=== PATIENT | female | born 1965 | race Caucasian/White ===

== ENCOUNTER 2018-11-24 07:34 | Inpatient (IN) ==
--- NOTE | 2018-11-24 08:32 | PROVIDER DOCUMENTATION ---
HPI-Musculoskeletal Pain/Inj - GENERAL Chief Complaint: Extremity Pain Stated Complaint: LEG SWOLLEN / RED Time Seen by Provider: 11/24/18 08:20 - HX OF PRESENT ILLNESS-MUSKULOSKELTAL Nature of Presenting Problem: patient with history of leukemia, DVT presented with pain behind left knee and red spots in posterior aspect of left thigh, no injury was reported , negative for fever or source on infection Quality of Pain: reports: sharp Severity in ED: moderate Onset/Duration: 3 days ago Timing: still present Modifying Factors: improves with: nothing Any recent injury?: No Similar Symptoms Previously?: No Recently seen or treated by another doctor?: No - FALL INJURY Location of Pain/Injury: reports: none Review of Systems - Adult - REVIEW OF SYSTEMS - ADULT Constitutional: reports: fever. denies: fatique, night sweats Eyes: reports: no symptoms reported Ears, Nose, Mouth & Throat: reports: no symptoms reported Cardiovascular: reports: no symptoms reported Respiratory: reports: no symptoms reported Gastrointestinal: reports: no symptoms reported Genitourinary: reports: no symptoms reported Musculoskeletal: reports: other (left lower extremity pain and redness) Neurological: reports: no symptoms reported Psychiatric: reports: no symptoms reported Endocrine: reports: no symptoms reported Hematologic/Lymphatic: reports: no symptoms reported Allergic/Immunologic: reports: no symptoms reported Past History - Adult - PAST MEDICAL HISTORY-ADULT Review of Records: reports: Nursing Assessment Review Major Childhood Illnesses: reports: denies history Cardiovascular: reports: denies history Respiratory: reports: denies history Gastrointestinal: reports: denies history Obstetrical/Gynecological: reports: denies history Genitourinary: reports: denies history Musculoskeletal: reports: denies history Neurological: reports: denies history Endocrine/Immune: reports: denies history Other Conditions: reports: denies history Physical Exam-Injury Related - Physical Exam-Injury Related Initial Vital Signs Reviewed: Yes General Appearance: appears well, alert, no apparent distress Eyes: PERRL/EOMI Head, Ears, Nose, Mouth & Throat: normocephalic/atraumatic, moist mucous membranes Neck: non-tender, supple Respiratory: chest non-tender, lungs clear Cardiovascular: normal peripheral pulses, regular rate, rhythm, no edema, no gallop, no JVD, no murmur Chest/Breast: deferred Abdominal Exam: normal bowel sounds, non tender, soft, no organomegaly, no pulsatile mass Rectal Exam: deferred Hemoccult Exam: deferred Lymphatic: no adenopathy, axilla node tender Extremity: erythema, tenderness, other (discreted erythema rash in posterior aspect of the left thigh, tenderness). 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 negative: disoriented x 3 - Glascow Coma Score Best Eye Response ([place]): (4) open spontaneously Best Verbal Response (Vance): (5) oriented Best Motor Response ([place]): (6) obeys commands Progress - PLAN OF CARE/RESULTS Progress/Plan/Lab Results: Vital Signs - 8 hr 11/24/18 07:45 11/24/18 09:34 Temperature 97.5 F L Pulse Rate 120 H 106 H Respiratory Rate 20 20 Blood Pressure 103/070 117/86 O2 Sat by Pulse Oximetry 96 96 Laboratory Results - last 24 hr 11/24/18 11/24/18 11/24/18 08:45 08:45 08:55 WBC 15.44 H RBC 3.74 L Hgb 12.5 Hct 37.0 MCV 98.9 MCH 33.4 H MCHC 33.8 RDW Std Deviation 14.3 Plt Count 192 MPV 10.7 H Immature Gran % (Auto) 0.2 Neut % (Auto) 75.3 H Lymph % (Auto) 13.6 L Cedar % (Auto) 8.9 Eos % (Auto) 1.7 Baso % (Auto) 0.3 Immature Gran # (Auto) 0.03 Neut # (Auto) 11.61 H Lymph # (Auto) 2.10 Cedar # (Auto) 1.38 H Eos # (Auto) 0.27 Baso # (Auto) 0.05 Sodium 142 Potassium 3.8 Chloride 99 Carbon Dioxide 27 Anion Gap 16 BUN 8 Creatinine 0.7 Estimated GFR/1.73 m2 > 60 BUN/Creatinine Ratio 11 Glucose 106 H Calculated Osmolality 282 Calcium 9.4 Total Bilirubin 0.70 AST 17 ALT 11 Alkaline Phosphatase 95 Total Protein 7.2 Albumin 4.1 Globulin 3.0 Albumin/Globulin Ratio 1.0 Plasma Lactate 1.3 Orders Category Date Time Status Admit - [facility] Routine AdmDCTranf 11/24/18 13:22 Active Activity - Bed Rest with BRP ORDERED Care 11/24/18 13:22 Completed Neurological Check Q4H Care 11/24/18 13:22 Active Saline Loc NOW Care 11/24/18 08:26 Completed Vital Signs Order Q 4-HR ASSESS Care 11/24/18 13:22 Active Z-Document. for Tele Applied ORDERED Care 11/24/18 13:22 Active Regular Diet Diet 11/24/18 13:23 Active CTA [CT ANGIOGRM PULMONARY ARTERIES] [CT] Stat Exams 11/24/18 09:42 Completed BLOOD CULTURE [BLDCUL] Stat Lab 11/24/18 08:55 Ordered CBC WITH DIFF [HEME] Stat Lab 11/24/18 08:45 Completed COMPREHENSIVE METABOLIC PANEL [CHEM] Stat Lab 11/24/18 08:45 Completed LACTATE, PLASMA [CHEM] Stat Lab 11/24/18 08:55 Completed Acetaminophen [Tylenol] Med 11/24/18 13:22 Active 650 mg PO Q6H PRN PRN Apixaban [Eliquis] Med 11/24/18 09:18 Discontinued 10 mg PO NOW ONE Budesonide/Formoterol Inhaler [Symbicort 160/4.5 Med 11/24/18 19:30 Active Microgm Inhaler] 2 puff INH RTBID Enoxaparin [Lovenox] Med 11/24/18 21:00 Active 50 mg SUBQ Q12H Montelukast [Singulair] Med 11/25/18 09:00 Active 10 mg PO DAILY Ondansetron [Zofran] Med 11/24/18 13:22 Active 4 mg IV Q4H PRN PRN Oxygen Device Routine Oth 11/24/18 13:22 Active Telemetry [OM.EQ] Routine Oth 11/24/18 13:22 Active EKG [EKG] Stat Ther 11/24/18 08:27 Ordered Venous U/S Left Leg Stat Ther 11/24/18 08:25 Completed Transfer/Admit Order [TRANSFER] Routine Transfer 11/24/18 12:16 Completed Result Diagrams: 11/24/18 08:45 11/24/18 08:45 - REASSESSMENT Reassessment #1 Status: unchanged (patient denied chest pain or shortness of breath) - CT/MRI 1 CT Study: Thorax Impression: See EMR Report (EXAM: CT ANGIOGRM PULMONARY ARTERIES HISTORY: tachycardia, possible for DVT, rule out PE TECHNIQUE: CT chest with intravenous contrast. Pulmonary two protocol with MIP images. COMPARISON: 06/21/2014 FINDINGS: There is a large pulmonary embolus in the left pulmonary artery extending into the lower lobe branches. A small amount of thrombus is present in the left upper lobe pulmonary artery. Prominent thrombus in the right upper lobe pulmonary artery with a small amount of thrombus in the right lower lobe pulmonary artery. No thoracic aortic aneurysm. No opacification of approximately one third of the distal descending thoracic aorta extending into the upper abdomen. This had normal opacification of the prior study. There is an 8 mm pleural-based nodule posteriorly in the left lower lobe. Mild emphysema. No consolidation. No bronchiectasis. Limited images through the upper abdomen reveal multiple stones within the gallbladder. IMPRESSION: 1.Bilateral pulmonary emboli 2.Possible lower thoracic aortic dissection which was not present on the prior study. There is no contrast within the dissected portion. 3.Left lower lobe pulmonary nodule 4.Emphysema 5.Cholelithiasis This report was discussed with Dr Perez in the [place] emergency room on 11/24/2018 at 10:45 AM and was readback. This exam was performed using automated exposure control, adjustment of mA or kV according to patient size, and/or use of iterative reconstruction technique. Electronically signed by Migel Padgett 11/24/2018 10:46 AM 11/24/18 1046 Interpreting Physician: Migel Padgett MD Dictated Date/Time: 11/24/18 1037 cc: Bea Perez MD; None,PCP) - ULTRASOUND (By Radiology) 1 US Study: Lower Ext Impression: See EMR Report (Patient: GERARDO YUEN Date: 11/24/18MR#: [id number] : 1965Acct#: [id number] Family Physician: None,PCP EXAM: Venous U/S Left Leg HISTORY: rule out DVT TECHNIQUE: Left lower extremity venous Doppler ultrasound COMPARISON: None. FINDINGS: There is thrombus in the common femoral vein, superficial femoral vein and popliteal veins. There is also superficial venous thrombosis. IMPRESSION: Extensive left lower extremity deep venous thrombosis. The referring physician was notified at the time of the exam. Electronically signed by Migel Padgett 11/24/2018 9:51 AM 11/24/18 0951 11/24/18 0953 Dictated by: Migel Padgett MD Dictated: 11/24/1849 Transcribed by: - 11/24/18948) - CONSULTS/PCP/HOSPITALIST Notification #1 *Consult/PCP/Hospitalist*: walker Time Discussed: 11:01 Consult Disposition: other (OK to admit and he will see as product marketing consultant) #2 Consult: [place] Consult Disposition: Admit Departure - Departure Date of Disposition Decision: 11/24/18 Time of Disposition Decision: 08:40 DIAGNOSIS: DVT (deep venous thrombosis), Pulmonary emboli Disposition: ADMITTED INPATIENT 09 Certified Medical Emergency: Emergent Condition: Good - Critical Care Note This patient required my direct & personal management of CC.: No Attestation - Physician/ RANDY Attestation Patient care was provided by Advanced Practice Provider:: No The physician spent face to face time with patient:: Yes Advanced Practice Provider documentation review:: Supervising physician onsite and consulted in the evaluation and care of this patient. The physician did have a face to face encounter with the patient.
[2018-11-24] MEDS ORDERED: ELIQUIS PO ONE (09:18)
--- NOTE | 2018-11-24 09:53 | Extremity Venous Study ---
EXAM: Venous U/S Left Leg HISTORY: rule out DVT TECHNIQUE: Left lower extremity venous Doppler ultrasound COMPARISON: None. FINDINGS: There is thrombus in the common femoral vein, superficial femoral vein and popliteal veins. There is also superficial venous thrombosis. IMPRESSION: Extensive left lower extremity deep venous thrombosis. The referring physician was notified at the time of the exam. Electronically signed by Migel Padgett 11/24/2018 9:51 AM
[2018-11-24 10:03] LABS: BASO# 0.05 X1000 (0.0-0.2); BASO% 0.3 % (0.0-0.8); EOS# 0.27 X1000 (0.0-0.7); EOS% 1.7 % (0.0-10.0); HEMOGLOBIN 12.5 g/dL (12.0-16.0); IMM GRAN# 0.03 X1000 (0.0-0.04); IMM GRAN% 0.2 % (0.0-0.5); LYMPH% 13.6 % (20.5-51.1); MCH 33.4 PG (27-31); MCHC 33.8 g/dL (33-37); MCV 98.9 FL (81-99); MONO# 1.38 X1000 (0.11-0.59); MONO% 8.9 % (1.7-9.3); MPV 10.7 FL (7.4-10.4); NEUT# 11.61 X1000 (1.4-6.5); NEUT% 75.3 % (42.2-75.2); PLT 192 X1000 (130-400); RBC 3.74 XMIL (4.2-5.4); RDW 14.3 % (11.5-14.5); WBC 15.44 X1000 (4.8-10.8)
[2018-11-24 10:14] LABS: AGAP 16; ALBUMIN 4.1 g/dL (3.5-5.0); ALKALINE PHOSPHATASE 95 U/L (32-104); BUN 8 mg/dL (8-22); CALCIUM 9.4 mg/dL (8.8-10.2); CHLORIDE 99 mmol/L (98-107); COSMO 282; CREATININE 0.7 mg/dL (0.5-0.9); ESTIMATED GFR > 60; GLUCOSE 106 mg/dL (70-104); GOT 17 U/L (10-30); GPT 11 U/L (10-36); POTASSIUM 3.8 mmol/L (3.5-5.1); SODIUM 142 mmol/L (136-145); TCO2 27 mmol/L (25-35); TOTAL PROTEIN 7.2 g/dL (6.3-8.3)
--- NOTE | 2018-11-24 10:48 | Diag Imaging Result Doc PS360 ---
EXAM: CT ANGIOGRM PULMONARY ARTERIES HISTORY: tachycardia, possible for DVT, rule out PE TECHNIQUE: CT chest with intravenous contrast. Pulmonary two protocol with MIP images. COMPARISON: 06/21/2014 FINDINGS: There is a large pulmonary embolus in the left pulmonary artery extending into the lower lobe branches. A small amount of thrombus is present in the left upper lobe pulmonary artery. Prominent thrombus in the right upper lobe pulmonary artery with a small amount of thrombus in the right lower lobe pulmonary artery. No thoracic aortic aneurysm. No opacification of approximately one third of the distal descending thoracic aorta extending into the upper abdomen. This had normal opacification of the prior study. There is an 8 mm pleural-based nodule posteriorly in the left lower lobe. Mild emphysema. No consolidation. No bronchiectasis. Limited images through the upper abdomen reveal multiple stones within the gallbladder. IMPRESSION: 1.Bilateral pulmonary emboli 2.Possible lower thoracic aortic dissection which was not present on the prior study. There is no contrast within the dissected portion. 3.Left lower lobe pulmonary nodule 4.Emphysema 5.Cholelithiasis This report was discussed with Dr Perez in the [place] emergency room on 11/24/2018 at 10:45 AM and was readback. This exam was performed using automated exposure control, adjustment of mA or kV according to patient size, and/or use of iterative reconstruction technique. Electronically signed by Migel Padgett 11/24/2018 10:46 AM
[2018-11-24] MEDS ORDERED: TYLENOL PO PRN (13:22)
--- NOTE | 2018-11-24 14:57 | HISTORY AND PHYSICAL ---
CHIEF COMPLAINT: Pain in her left knee with redness to the posterior aspect of the left thigh and also having shortness of breath that has worsened over the past 3 days. HISTORY OF PRESENTING ILLNESS: This is a 53-year-old female who presents to [facility] ER stating that she has been having pain behind her left knee with some red spots on the posterior aspect of her left thigh. Also, has had some shortness of breath with minimal exertion noted. States she has had a history of a DVT in her left leg about a year ago, was on anticoagulation and was taken off. We did a left leg venous Doppler ultrasound that showed an extensive left lower extremity DVT. Due to her complaints of shortness of breath, we did a CT angiogram of the pulmonary arteries that showed bilateral pulmonary emboli, a possible lower thoracic aortic dissection which was not present on the prior study but there was no contrast within the dissected portion, a left lower lobe pulmonary nodule, emphysema, and cholelithiasis. This was discussed with our on-call general surgeon, Dr. Cheema, who felt that this could be managed here at [place]. He will be consulted for further evaluation and treatment. She is being admitted to our intensive care unit. PAST MEDICAL HISTORY: Left lower extremity DVT and leukemia. PAST SURGICAL HISTORY: section and a stem cell transplant. FAMILY HISTORY: Reviewed and noncontributory. SOCIAL HISTORY: She is a pack a day smoker. Denies any alcohol or illicit drug use. She currently lives alone. ALLERGIES: Latex. HOME MEDICATIONS: We will continue her Symbicort 160/4.5 mcg inhaler 2 puffs b.i.d. and Singulair 10 mg p.o. daily. LABORATORY DATA: Showed a white blood cell count of 15.44, a hemoglobin of 12.5, a hematocrit of 37, platelets 192,000. Sodium 142, potassium 3.8, chloride 99, CO2 27, BUN of 8, creatinine 0.7 glucose 106, plasma lactate 1.3. A left lower extremity venous Doppler showed an extensive left lower extremity DVT. Pulmonary arteriogram showed bilateral pulmonary emboli, possible lower thoracic aortic dissection not present on the prior study. No contrast within the dissected portion. A left lower lobe pulmonary nodule, emphysema, and cholelithiasis. REVIEW OF SYSTEMS: She denied any fever, chills, blurred vision, dizziness, chest pain, coughing. She did have shortness of breath that was worse with exertion. Denied any abdominal pain, constipation, diarrhea, burning or hurting with urination. She also had pain to her left lower extremity, worse with movement. PHYSICAL EXAMINATION: VITAL SIGNS: On arrival, she had a temperature of 97.5 degrees, pulse 120, respirations 20, blood pressure 103/70, saturating 96% on room air. GENERAL: This is a 53-year-old female who is lying in the bed. Answers questions appropriately. HEENT: Normocephalic, atraumatic. Normal ENT inspection. Oropharynx and nares are clear. Eyes: Pupils are equal, round, and reactive to light and accommodation. Extraocular movements are intact. NECK: Normal inspection. Normal range of motion. LUNGS: Clear to auscultation bilaterally with equal lung expansion and chest wall movement. HEART: With regular rate and rhythm. No murmurs, rubs, or gallops. ABDOMEN: Soft, nontender, nondistended. Bowel sounds are present x4 quadrants. MUSCULOSKELETAL: She has 5/5 strength x4 extremities. Moves all extremities well. NEUROLOGICAL: The cranial nerves 2-12 appear grossly intact. ASSESSMENT: 1. Bilateral pulmonary emboli. 2. Left lower extremity deep venous thrombosis. 3. Leukocytosis, most likely reactive. 4. Tobacco abuse. PLAN: She was admitted to the intensive care unit at [place], placed on neurological checks q.4 hours for 24 hours, telemetry, O2 per protocol. We are going to place her on a regular diet, echocardiogram. We will consult general surgery. She was given a now dose of Eliquis in the emergency room, so we will start her on Lovenox 1 mg/kg subcutaneously q.12 starting tonight at 9 p.m. We will do a hypercoagulable workup. We are going to check a UA just to rule out any urinary tract infection since she does have a little bump in her white blood cell count, and we will recheck a CBC and BMP in the a.m. Further orders after seen by attending and by internal consultant. Dictated by BETHANY Moss for Kenny Stern MD cc: BETHANY Moss MD
[2018-11-24] MEDS: NORCO-7.5 PO PRN ×2 (15:21→20:23)
[2018-11-24 15:28] LABS: BILIRUBIN URINE NEGATIVE (NEGATIVE); BLOOD URINE NEGATIVE (NEGATIVE); CLARITY CLEAR (CLEAR); COLOR YELLOW; GLUCOSE URINE NEGATIVE (NEGATIVE); KETONE URINE NEGATIVE (NEGATIVE); LEUKOCYTES URINE TRACE (NEGATIVE); NITRITE URINE NEGATIVE (NEGATIVE); PROTEIN URINE 1+(30 mg/dL) mg/dL (NEGATIVE); SP GRAVITY URINE 1.005; URINE BACTERIA NEGATIVE /HFP; URINE CAST NONE SEEN /LPF; URINE CRYSTAL NONE SEEN /HPF; URINE EPITHELIAL CELLS <10 /HPF (<10); URINE RBC <10 /HPF (<10); URINE SOURCE CLEAN CATCH; URINE WBC <10 /HPF (<10); URINE YEAST NONE SEEN /HPF; UROBILINOGEN URINE NORMAL
[2018-11-24] MEDS: SYMBICORT 160/4.5 MICROGM INHALER INH SCH (19:35)
--- NOTE | 2018-11-24 19:36 | ECHO REPORT ---
ORDER DATE: 11/24/2018 REQUESTING PHYSICIANS: Hospitalist service at [facility]. INDICATION: Evaluation of pulmonary embolism. M-MODE MEASUREMENTS: Left ventricle end diastole: 4.1. Left ventricle end systole: 2.7. Posterior wall: 1.2. Interventricular septum: 1.3. Left atrium: 2.8. Aortic diameter: 3.0. SUMMARY OF 2-DIMENSIONAL IMAGIN. Left ventricular function appears to be normal. Ejection fraction visually estimated at 60%. There is no wall motion abnormality noted. 2. The right ventricle appears to be slightly enlarged, especially on the 4-chamber view. 3. Right ventricular function appears to be generally well preserved. 4. The aortic valve looks normal. It has 3 cusps. Color flow mapping unremarkable. 5. The mitral valve is normal. Color flow mapping unremarkable. 6. Pulsed wave Doppler of mitral inflow shows reversal of the E/A ratio. The ratio is 0.6. 7. Tissue Doppler of septal and lateral mitral annulus averages 6.5 cm. There may be some impairment of left ventricular relaxation. 8. The tricuspid valve was visualized; however, there was no evidence of any significant tricuspid regurgitation. Pulmonary systolic pressure could not be calculated in this case. 9. The pulmonic valve appears to be grossly within normal range. 10.There is no pericardial effusion, mass, or thrombus. Clinical correlation recommended. cc: MD Tianna Mills CRNP Alexis R. Penot, MD
[2018-11-24] MEDS: LOVENOX SUBQ SCH (20:24)
--- NOTE | 2018-11-24 20:47 | HISTORY AND PHYSICAL ---
The patient is evaluated. The patient has a history of CML and she is status post a stem cell transplant at [facility]. She does have a history of a DVT. She states the left leg, but then she is unclear which leg it was, but it was after an episode of septic shock pneumonia when she was hospitalized. The patient was admitted for treatment. She came in with pain and swelling in her left leg. She also reported some shortness of breath. She was tachycardic. I discussed the case briefly with Dr. Perez and pursued CT which showed PE, but she had been started on Eliquis because anticipated that it was just DVT, but there was question of a dissection or a flap, although she reports no pain, no tearing pain, no abnormal blood pressures, and it is in the descending portion of her aorta without blood flow to it. In any case, the patient was evaluated. She was found to have PE, DVT and she is admitted for treatment. I am going to put her on just Lovenox at this point, and we will hold apixaban. That may be a long-term medicine. She will need an echocardiogram and then a vascular surgeon evaluation for questionable dissection. DISPOSITION: Pending her clinical status, she will be monitored in the ICU. Obviously, she is a high risk patient. She has had 2 deep venous thromboses, and therefore I think she will need long- term anticoagulation, and we discussed about that. This is a [id number] encounter note with Tianna Oneal. We will continue to monitor closely. cc: MD ESTELA Dykes
--- NOTE | 2018-11-24 22:55 | GENERAL SURGERY CONSULTATION ---
DATE: 11/24/2018 HISTORY OF PRESENT ILLNESS: Ms. Sowmya Carmichael is a pleasant 53-year-old who began experiencing some left leg discomfort on Thursday. She presented to the emergency department yesterday, where she was found to have extensive DVT in the left leg. Also found to have pulmonary emboli on both sides in her pulmonary tree, larger in volume on the left. She has not shown any hemodynamic instability. There was some question about dissection in her descending aorta. This appears to be right above the takeoff of the celiac. She has no back pain or trouble with perfusion. PAST MEDICAL HISTORY: She has had a previous and stem cell transplant for a history of leukemia. SOCIAL HISTORY: She does smoke a pack per day. She denies any alcohol or drug use. She lives alone. MEDICATIONS: Her medications are listed. ALLERGIES: Latex. REVIEW OF SYSTEMS: Otherwise unremarkable. PHYSICAL EXAMINATION: Temperature is 98.9 degrees, heart rate 103, blood pressure 106/64. Bilateral breath sounds. Heart is regular rate and rhythm. Abdomen is soft. Her left leg is mildly tender, but is not particularly swollen now. Femoral pulses are present. LABORATORY DATA: White count is 15,400, hemoglobin 12.5. BUN 8, creatinine 0.7. LFTs are normal. ASSESSMENT: 1. Left leg deep venous thrombosis with pulmonary emboli. 2. Chronic descending aortic dissection. RECOMMENDATIONS: I would simply recommend anticoagulation currently. She will need to stop smoking. Thirdly is her aortic dissection, which appears to be limited and chronic. Typically, descending dissections are treated medically anyway. There is no evidence of dissection or affect to her celiac or SMA vessels. It certainly is asymptomatic, so the primary recommendation for that will be simply to control her blood pressure appropriately. No other recommendations. Thanks for the opportunity to see her. cc: MD Kenny Mora MD
[2018-11-25] MEDS: NORCO-7.5 PO PRN ×4 (01:13→22:50)
[2018-11-25] MEDS: PRILOSEC PO SCH (06:13)
[2018-11-25 06:27] LABS: BASO# 0.05 X1000 (0.0-0.2); BASO% 0.4 % (0.0-0.8); EOS# 0.66 X1000 (0.0-0.7); EOS% 5.5 % (0.0-10.0); HEMATOCRIT 32.7 % (37.0-47.0); IMM GRAN# 0.02 X1000 (0.0-0.04); IMM GRAN% 0.2 % (0.0-0.5); LYMPH# 2.94 X1000 (1.2-3.4); LYMPH% 24.3 % (20.5-51.1); MCH 33.2 PG (27-31); MCHC 33.6 g/dL (33-37); MCV 98.8 FL (81-99); MONO# 1.31 X1000 (0.11-0.59); MONO% 10.8 % (1.7-9.3); NEUT# 7.12 X1000 (1.4-6.5); NEUT% 58.8 % (42.2-75.2); PLT 187 X1000 (130-400); RBC 3.31 XMIL (4.2-5.4); RDW 14.4 % (11.5-14.5)
[2018-11-25 06:42] LABS: AGAP 12; BUN 7 mg/dL (8-22); CALCIUM 8.9 mg/dL (8.8-10.2); CHLORIDE 96 mmol/L (98-107); COSMO 270; CREATININE 0.6 mg/dL (0.5-0.9); ESTIMATED GFR > 60; GLUCOSE 102 mg/dL (70-104); SODIUM 136 mmol/L (136-145); TCO2 28 mmol/L (25-35)
[2018-11-25] MEDS: SYMBICORT 160/4.5 MICROGM INHALER INH SCH ×2 (07:30→19:13)
[2018-11-25] MEDS: ZOFRAN IV PRN ×2 (08:38→22:50)
[2018-11-25] MEDS: LOVENOX SUBQ SCH ×2 (08:38→20:08)
[2018-11-25] MEDS: SINGULAIR PO SCH (08:38)
[2018-11-25] MEDS ORDERED: XOPENEX NEB INH PRN (09:52)
--- NOTE | 2018-11-25 10:32 | PROGRESS NOTE ---
DATE: 11/25/2018 SUBJECTIVE: Patient has no major complaints. OBJECTIVE: Vital Signs: Blood pressure is 101/62, heart rate of 80, respiratory rate of 15, temperature 97.2 degrees. Cardiovascular: Regular rate and rhythm. Pulmonary: Bilateral breath sounds. Clear to auscultation. GI: Soft, nontender, nondistended. Bowel sounds are positive. Extremities: Her left foot is stable. LABS: White count is down to 12, H and H 11 and 32, platelets 187. Basic was normal. She has normal indices. ASSESSMENT AND PLAN: 1. Acute deep vein thrombosis or pulmonary embolus. This is her second event, so she will likely need lifetime anticoagulation. She is currently on Lovenox. We will transition her to Eliquis once we can get her situated, and we will see how she does. 2. Possible aortic dissection, chronic. Dr. Cheema has evaluated the patient and feels this is chronic, and needs no further intervention, just medical treatment. Whereas I am reassured, I am a little concerned that she is going to be fully anticoagulated. It is not clear that this has been there before. I am going to try to get old records from her [place] physicians, try to get some data from [facility]. 3. Anemia. We will pursue anemia workup. 4. Chronic obstructive pulmonary disease. She appears to be pretty stable. We will start to work on mobilizing her a little bit. 5. Disposition: I am going to monitor in the intensive care unit for another 24 hours at least, and we will see how she does. We will start pricing her medications and follow. cc: Kenny Stern MD
[2018-11-25] MEDS: XANAX PO PRN ×2 (11:30→20:09)
[2018-11-26] MEDS: NORCO-7.5 PO PRN ×4 (03:51→20:54)
[2018-11-26] MEDS: PRILOSEC PO SCH (06:45)
[2018-11-26 07:18] LABS: BASO# 0.02 X1000 (0.0-0.2); BASO% 0.2 % (0.0-0.8); EOS# 0.41 X1000 (0.0-0.7); HEMATOCRIT 31.7 % (37.0-47.0); HEMOGLOBIN 10.2 g/dL (12.0-16.0); IMM GRAN# 0.02 X1000 (0.0-0.04); IMM GRAN% 0.2 % (0.0-0.5); LYMPH# 2.06 X1000 (1.2-3.4); LYMPH% 20.2 % (20.5-51.1); MCH 32.3 PG (27-31); MCHC 32.2 g/dL (33-37); MCV 100.3 FL (81-99); MONO# 1.05 X1000 (0.11-0.59); MONO% 10.3 % (1.7-9.3); NEUT# 6.66 X1000 (1.4-6.5); NEUT% 65.1 % (42.2-75.2); PLT 189 X1000 (130-400); RBC 3.16 XMIL (4.2-5.4); RDW 14.2 % (11.5-14.5); WBC 10.22 X1000 (4.8-10.8)
[2018-11-26] MEDS: SYMBICORT 160/4.5 MICROGM INHALER INH SCH ×2 (07:46→19:26)
[2018-11-26 07:48] LABS: AGAP 11; BUN 9 mg/dL (8-22); CHLORIDE 101 mmol/L (98-107); COSMO 276; CREATININE 0.6 mg/dL (0.5-0.9); GLUCOSE 95 mg/dL (70-104); POTASSIUM 4.2 mmol/L (3.5-5.1); SODIUM 139 mmol/L (136-145); TCO2 27 mmol/L (25-35)
[2018-11-26 07:49] LABS: CALCIUM 9.1 mg/dL (8.8-10.2); ESTIMATED GFR > 60
[2018-11-26] MEDS: SINGULAIR PO SCH (09:13)
[2018-11-26] MEDS: LOVENOX SUBQ SCH ×2 (09:13→20:32)
[2018-11-26] MEDS ORDERED: NS 500 ML IV ONE ×2 (10:39→15:29)
[2018-11-26] MEDS: XANAX PO PRN ×2 (10:56→20:55)
--- NOTE | 2018-11-26 12:15 | PROGRESS NOTE ---
DATE: 11/26/2018 SUBJECTIVE: She has no complaints. She says she feels stronger. OBJECTIVE: Blood pressure is 85/54. She has had several blood pressures this morning in the 80s which is a change for her. Heart rate 98, respiratory rate 23, temperature 97.2. Cardiovascular: Regular rate and rhythm. Pulmonary: Bilateral breath sounds, clear to auscultation. GI: Soft, nontender and nondistended. Bowel sounds were positive. DIAGNOSTIC DATA: White count is 10, hemoglobin and hematocrit are 10 and 31, which has dropped steadily. Platelet count 189. PROBLEMS: 1. Acute deep venous thrombosis, pulmonary embolism. She is on anticoagulation with Lovenox. We will transition her to Eliquis when stable. 2. Aortic dissection versus mural thrombus. We will continue to monitor. 3. Anemia. We will pursue anemia workup. 4. Chronic obstructive pulmonary disease. Stable. 5. Hypotension. We will evaluate for any bleeding or dehydration issues. Give fluids and follow. DISPOSITION: Pending her clinical status. cc: Kenny Stern MD
[2018-11-26] MEDS ORDERED: LACTULOSE PO ONE (15:30)
[2018-11-26] MEDS ORDERED: DOPAMINE 800 MG/D5W 800 MG/250 ML IV.SOLN IV SCH (15:30)
[2018-11-26] MEDS: MIRALAX PO SCH (15:44)
[2018-11-26] MEDS: ZOFRAN IV PRN (15:52)
[2018-11-26] MEDS: LACTULOSE PO SCH (20:42)
[2018-11-26 21:59] LABS: OCCULT BLOOD 1 NEGATIVE (NEGATIVE)
[2018-11-27] MEDS: NORCO-7.5 PO PRN ×2 (05:17→14:30)
[2018-11-27 05:54] LABS: BASO# 0.02 X1000 (0.0-0.2); BASO% 0.2 % (0.0-0.8); EOS# 0.27 X1000 (0.0-0.7); EOS% 2.1 % (0.0-10.0); HEMATOCRIT 30.8 % (37.0-47.0); IMM GRAN# 0.02 X1000 (0.0-0.04); IMM GRAN% 0.2 % (0.0-0.5); LYMPH# 1.18 X1000 (1.2-3.4); LYMPH% 9.3 % (20.5-51.1); MCH 32.7 PG (27-31); MCHC 32.5 g/dL (33-37); MCV 100.7 FL (81-99); MONO# 1.11 X1000 (0.11-0.59); MONO% 8.7 % (1.7-9.3); MPV 11.3 FL (7.4-10.4); NEUT# 10.14 X1000 (1.4-6.5); NEUT% 79.5 % (42.2-75.2); PLT 201 X1000 (130-400); RBC 3.06 XMIL (4.2-5.4); RDW 14.3 % (11.5-14.5); WBC 12.74 X1000 (4.8-10.8)
[2018-11-27 06:17] LABS: AGAP 10; BUN 7 mg/dL (8-22); CALCIUM 8.8 mg/dL (8.8-10.2); CHLORIDE 103 mmol/L (98-107); COSMO 278; CREATININE 0.6 mg/dL (0.5-0.9); ESTIMATED GFR > 60; GLUCOSE 110 mg/dL (70-104); POTASSIUM 4.2 mmol/L (3.5-5.1); SODIUM 140 mmol/L (136-145); TCO2 27 mmol/L (25-35)
[2018-11-27] MEDS: PRILOSEC PO SCH (06:36)
[2018-11-27] MEDS: SINGULAIR PO SCH (08:39)
[2018-11-27] MEDS: MIRALAX PO SCH (08:39)
[2018-11-27] MEDS: LOVENOX SUBQ SCH ×2 (08:39→21:07)
[2018-11-27] MEDS: XANAX PO PRN ×3 (08:42→22:01)
[2018-11-27] MEDS: SYMBICORT 160/4.5 MICROGM INHALER INH SCH ×2 (08:57→20:57)
[2018-11-27] MEDS: LACTULOSE PO SCH ×2 (09:27→21:06)
[2018-11-27] MEDS ORDERED: NS 500 ML IV ONE (14:37)
--- NOTE | 2018-11-27 19:35 | Diag Imaging Result Doc PS360 ---
EXAM: CT ABD/PELVIS W/PO AND IV CON HISTORY: hypotension, r/o bleed TECHNIQUE: CT abdomen and pelvis with intravenous contrast COMPARISON: None. FINDINGS: Small nodular density in the left lower lobe is unchanged from the recent chest CT. There are multiple calcified stones within the gallbladder. No inflammation about the gallbladder. Normal liver, spleen, pancreas, adrenal glands, and kidneys. No hydronephrosis. Prominent atherosclerosis. No aortic aneurysm. Normal appendix. No abscess. There is stool throughout the colon. No bowel obstruction. No ascites. The urinary bladder is distended and is normal. The uterus is small. There is thrombus within the left superficial femoral and common femoral veins. This was diagnosed on a recent lower extremity venous Doppler ultrasound. IMPRESSION: 1.Cholelithiasis 2.Constipation 3.Prominent atherosclerosis 4.Left lower extremity deep venous thrombosis 5.No hematoma This exam was performed using automated exposure control, adjustment of mA or kV according to patient size, and/or use of iterative reconstruction technique. Electronically signed by Migel Padgett 11/27/2018 7:32 PM
[2018-11-27] MEDS: ULTRAM PO PRN (22:01)
--- NOTE | 2018-11-27 23:18 | PROGRESS NOTE ---
DATE: 11/27/2018 SUBJECTIVE: The patient has no major complaints, except she is just unhappy about not being able to get up and around like she usually does, but no focal complaints. OBJECTIVE: Blood pressure is 99/61, heart rate of 96, respiratory rate of 14, temperature 98.8 degrees, 98% on room air.Cardiovascular: Regular rate and rhythm. Pulmonary: Bilateral breath sounds, clear to auscultation. GI: Soft, nontender, nondistended. Bowel sounds are positive. LABORATORY DATA: White count is 12, hemoglobin and hematocrit 10 and 30.8, which is not a big jump from yesterday. Platelets 201,000. Basic was normal. Her protein C activity was negative. Protein S activity was high. Her antithrombin III activity was normal, so none of those are positive. Homocysteine is normal. Her phospholipid antibody tests are negative. I think she had a lupus anticoagulant; we do not have that back. Hemoccult was negative, but she has persistent hypotension that I do not have a great explanation for. ASSESSMENT AND PLAN: 1. Deep venous thrombosis, pulmonary embolism. She is on Lovenox and stable. Transition her to Eliquis when I feel like her hemoglobin and hematocrit has stabilized, which hopefully is soon. 2. Possible mural thrombus, cannot rule out aortic dissection. Dr. Cheema has reviewed, feels like the patient is not a surgical candidate at least in the sense that there is nothing that needs to be done urgently. I did talk with the vascular surgeon in [place], who is Dr. Wills. I had put in a call before Dr. Cheema had seen the patient, and he also agreed. He is not even completely convinced it was a true dissection, that it was truly a mural thrombus. 3. Anemia. This has progressed after hydration, but we have not done the basic labs on that so I need to pursue anemia workup. 4. Chronic obstructive pulmonary disease, appears to be stable. 5. Persistent hypotension. She is now requiring pressors. In terms of this dehydration, I do not think it is any bleeding issues, but it is really not completely clear. She has no evidence of cardiogenic shock based on her echo, so I am going to pursue CT just to make sure that there is no occult bleeding, and we will continue to monitor. I am going to try to bolus her and see if we can try to get her off the fluids. Check a cortisol level, too, to rule out any adrenal insufficiency. We will follow and get her off pressors before we start ambulating her regularly. cc: Kenny Stern MD
[2018-11-28] MEDS: PRILOSEC PO SCH (06:00)
[2018-11-28 07:28] LABS: BASO# 0.03 X1000 (0.0-0.2); BASO% 0.3 % (0.0-0.8); EOS# 0.39 X1000 (0.0-0.7); EOS% 3.3 % (0.0-10.0); HEMOGLOBIN 10.8 g/dL (12.0-16.0); IMM GRAN# 0.02 X1000 (0.0-0.04); IMM GRAN% 0.2 % (0.0-0.5); LYMPH# 1.69 X1000 (1.2-3.4); LYMPH% 14.3 % (20.5-51.1); MCH 32.6 PG (27-31); MCHC 32.7 g/dL (33-37); MCV 99.7 FL (81-99); MONO# 1.31 X1000 (0.11-0.59); MONO% 11.1 % (1.7-9.3); NEUT# 8.35 X1000 (1.4-6.5); NEUT% 70.8 % (42.2-75.2); PLT 227 X1000 (130-400); RBC 3.31 XMIL (4.2-5.4); RDW 14.4 % (11.5-14.5); WBC 11.79 X1000 (4.8-10.8)
[2018-11-28 08:05] LABS: AGAP 13; BUN 6 mg/dL (8-22); CALCIUM 9.3 mg/dL (8.8-10.2); CHLORIDE 98 mmol/L (98-107); COSMO 279; CREATININE 0.6 mg/dL (0.5-0.9); ESTIMATED GFR > 60; GLUCOSE 175 mg/dL (70-104); IRON SATURATION 9 %; POTASSIUM 3.8 mmol/L (3.5-5.1); SODIUM 139 mmol/L (136-145); TCO2 28 mmol/L (25-35); TIBC 208 ug/dL; TOTAL IRON 19 ug/dL (49-151); UNBOUND IRON 189 ug/dL (112-346)
[2018-11-28] MEDS: XANAX PO PRN ×3 (08:36→21:05)
[2018-11-28] MEDS: ULTRAM PO PRN ×3 (08:36→21:05)
[2018-11-28] MEDS: MIRALAX PO SCH (08:37)
[2018-11-28] MEDS: SINGULAIR PO SCH (08:37)
[2018-11-28] MEDS: LOVENOX SUBQ SCH (08:37)
[2018-11-28] MEDS: LACTULOSE PO SCH ×2 (08:57→21:04)
[2018-11-28] MEDS: SYMBICORT 160/4.5 MICROGM INHALER INH SCH (09:03)
[2018-11-28] MEDS ORDERED: MIRALAX PO SCH (10:45)
[2018-11-28] MEDS ORDERED: NS 1,000 ML IV ONE (12:11)
[2018-11-28] MEDS ORDERED: FERRLECIT 125 MG in NS 100 ML IV ONE (12:11)
[2018-11-28] MEDS ORDERED: NICODERM PATCH TD PRN (12:22)
[2018-11-28] MEDS ORDERED: HEPARIN IV ONE ×4 (12:35→21:59)
[2018-11-28] MEDS ORDERED: LEVOPHED 8 MG in D5 1/2 NS 250 ML IV SCH ×2 (12:45→22:00)
[2018-11-28] MEDS ORDERED: HEPARIN 25,000 UNITS/D5W 25,000 UNIT/250 ML IV.SOLN IV SCH ×4 (12:45→21:15)
[2018-11-28] MEDS: SOLU-CORTEF IV SCH (13:13)
[2018-11-28] MEDS: NICODERM PATCH TD SCH (13:14)
[2018-11-28 13:57] LABS: FERRITIN 1226 ng/mL (13-150)
--- NOTE | 2018-11-28 14:09 | PROGRESS NOTE ---
DATE: 11/28/2018 SUBJECTIVE: The patient is frustrated because she wants to leave to go smoke a cigarette, which we discussed she cannot really do that on pressors. OBJECTIVE: Blood pressure 91/54. That was checked manually. Heart rate is 111, respiratory rate of 20, temperature 97.4 degrees. Cardiovascular: Regular rate and rhythm. Pulmonary: Bilateral breath sounds clear to auscultation. GI: Soft, nontender, nondistended. Bowel sounds were positive. Laboratory Data: White count is 11, hemoglobin and hematocrit 10 and 33, platelets 227,000. Basic was normal. She is a bit iron deficient, pretty significantly, iron deficient 19 with an iron saturation of 9. PROBLEM LIST: 1. Shock, which it is unclear if this is related to her pulmonary embolism. I do not get a sense she has had right ventricular failure or anything like that. We did an echocardiogram earlier in the admission and it looked fine but now she has got just persistent hypotension without a clear diagnosis. No evidence of heart damage. I am going to discuss with Dr. Minor about other treatment options but she is persistently hypotensive. 2. Pulmonary embolism, deep venous thrombosis. We will continue Lovenox. We will try to transition her to oral medications when she is stable, off pressors. 3. Mural thrombus, possible aortic dissection. Dr. Cheema and Dr. Wills in [place] have reviewed and feel this is not an urgent issue currently and not clear that is true dissection. Her CT of her abdomen and pelvis did not show any bleeding. 4. Chronic obstructive pulmonary disease, is stable. 5. Disposition. She is not able to go anywhere until we can kind of get her blood pressure stabilized. I am going to add a little bit of hydrocortisone, fluids, and follow. I am waiting on her cortisol level which we have gotten. Advised on smoking cessation. She has threatened that she had smoked in the room, just because she needs a cigarette, "jonesing for a cigarette", so we will continue to follow. cc: Kenny Stern MD
[2018-11-28] MEDS: NS 1,000 ML IV SCH (14:31)
--- NOTE | 2018-11-28 17:54 | Diag Imaging Result Doc PS360 ---
EXAM: CT ANGIOGRM PULMONARY ARTERIES HISTORY: yes TECHNIQUE: Emergency CT of the chest with intravenous contrast. Pulmonary arterial protocol with MIP images. COMPARISON: A CT performed four days earlier FINDINGS: No change in the pulmonary emboli described on the recent exam. Interval development of an 11 mm cavity laterally and inferiorly in the right upper lobe small amount of adjacent infiltrates. No other interval change. No cardiomegaly. No pleural effusions. IMPRESSION: Interval development of a small cavity in the right upper lobe with a small amount of adjacent infiltrates. No other interval change. This exam was performed using automated exposure control, adjustment of mA or kV according to patient size, and/or use of iterative reconstruction technique. Electronically signed by Migel Padgett 11/28/2018 5:52 PM
[2018-11-28] MEDS ORDERED: HEPARIN IV PRN (21:06)
[2018-11-28] MEDS: XOPENEX NEB INH PRN (21:45)
[2018-11-28] MEDS: HEPARIN 25,000 UNITS/D5W 25,000 UNIT/250 ML IV.SOLN IV SCH (22:00)
[2018-11-29] MEDS: SOLU-CORTEF IV SCH ×2 (00:49→13:00)
[2018-11-29] MEDS: NS 1,000 ML IV SCH ×3 (00:49→21:17)
[2018-11-29] MEDS: SYMBICORT 160/4.5 MICROGM INHALER INH SCH ×3 (01:02→19:30)
[2018-11-29] MEDS: XANAX PO PRN ×2 (04:36→15:29)
[2018-11-29] MEDS: ULTRAM PO PRN (04:36)
[2018-11-29 04:54] LABS: BASO# 0.02 X1000 (0.0-0.2); BASO% 0.2 % (0.0-0.8); EOS# 0.03 X1000 (0.0-0.7); EOS% 0.2 % (0.0-10.0); HEMATOCRIT 29.6 % (37.0-47.0); HEMOGLOBIN 9.8 g/dL (12.0-16.0); IMM GRAN# 0.04 X1000 (0.0-0.04); IMM GRAN% 0.3 % (0.0-0.5); LYMPH# 0.83 X1000 (1.2-3.4); LYMPH% 6.7 % (20.5-51.1); MCH 32.6 PG (27-31); MCHC 33.1 g/dL (33-37); MCV 98.3 FL (81-99); MONO# 0.47 X1000 (0.11-0.59); MONO% 3.8 % (1.7-9.3); NEUT# 10.93 X1000 (1.4-6.5); NEUT% 88.8 % (42.2-75.2); PLT 242 X1000 (130-400); RBC 3.01 XMIL (4.2-5.4); RDW 14.1 % (11.5-14.5); WBC 12.32 X1000 (4.8-10.8)
[2018-11-29 05:10] LABS: AGAP 12; BUN 6 mg/dL (8-22); CALCIUM 8.7 mg/dL (8.8-10.2); CHLORIDE 106 mmol/L (98-107); COSMO 284; CREATININE 0.6 mg/dL (0.5-0.9); ESTIMATED GFR > 60; GLUCOSE 126 mg/dL (70-104); POTASSIUM 4.1 mmol/L (3.5-5.1); SODIUM 143 mmol/L (136-145); TCO2 25 mmol/L (25-35)
[2018-11-29 05:22] LABS: BANDS 4 % (0-1); LYMPHS 8 % (21-51); MONO 6 % (1-9); SEGS 80 % (42-75)
[2018-11-29] MEDS: PRILOSEC PO SCH (06:24)
[2018-11-29] MEDS: MIRALAX PO SCH (08:02)
[2018-11-29] MEDS: SINGULAIR PO SCH (08:02)
[2018-11-29] MEDS: NICODERM PATCH TD SCH (08:02)
[2018-11-29] MEDS: LACTULOSE PO SCH ×2 (08:02→21:11)
--- NOTE | 2018-11-29 08:48 | ECHO REPORT ---
ORDER DATE: 11/28/2018 INTERPRETING PHYSICIAN: Dr. Miranda REQUESTING PHYSICIAN: CLINICAL INDICATIONS: This is a 53-year-old female with pulmonary embolism, hypotension. Please refer to the echocardiogram performed on 11/24/2018. The M-mode measurements have not changed. Please look it up in the computer. It is just 4 days prior to this test. M-MODE MEASUREMENTS: Right ventricle: cm. Left ventricle end diastole: cm. Left ventricle end systole: cm. Posterior wall: cm. Interventricular septum: cm. Left atrium: cm. Aortic root: cm. SUMMARY OF 2-DIMENSIONAL IMAGIN. The left ventricular function is excellent. Ejection fraction is 65%. No wall motion abnormality noted. 2. Right ventricle appears to be mildly enlarged. 3. Tricuspid valve shows mild degree of regurgitation. 4. The pulmonary pressure appears to be in the order of 49 mmHg. 5. I do not see significant pericardial effusion. 6. There is a prominent fat pad. 7. The atria appear to be normal. 8. The aortic valve is normal. 9. The mitral valve also looks normal. CONCLUSIONS: In summary, this echocardiographic study shows essentially normal LV function, normal valvular structures, and this study would rule out the presence of structural heart disease causing hypotension. So please investigate other reasons for it. cc: MD Kenny Mills MD
[2018-11-29] MEDS: XOPENEX NEB INH PRN (11:27)
--- NOTE | 2018-11-29 12:11 | PROGRESS NOTE ---
DATE: 11/29/2018 SUBJECTIVE: Patient has no major complaints. OBJECTIVE: Vitals: Blood pressure is 99/81, heart rate 99, respiratory rate 18, temperature was 97.9 degrees. She is requiring some oxygen now, though, 97% on 2 L. I guess she dropped a little bit overnight. Cardiovascular: Regular rate and rhythm. Pulmonary: Bilateral breath sounds. GI: Soft, nontender, nondistended. Bowel sounds are positive. LABORATORY DATA: White count is 12, hemoglobin and hematocrit 9.8, 29.6, which is a drop from yesterday, but really not much drop from the day before. Basic was normal. PROBLEM LIST: 1. Acute pulmonary embolus with symptomatic hypotension with unclear etiology for hypertension, which leaves concern that pulmonary embolus may be contributing to it. At this point, though she is off pressors. We are going to continue to monitor and discuss the case with Dr. Minor who will evaluate her and give further recommendations. TPA was a consideration, but she has a questionable mural thrombus versus dissection, which will likely preclude tPA and since she is clinically improved may be too risky to attempt at this point. We will discuss with Dr. Minor and then I may discuss with Pulmonary Service at [place], although I think they are on diversion. 2. Deep venous thrombosis. We will continue Lovenox and follow. There has been no evidence of further embolization based on repeat CT scan. 3. Cavitary presumably pneumonia, possibly related to pulmonary infarct. I am not sure if she is starting to develop infection. She does have a bit of a white count. She does have hypoxia. We will start antibiotics. I am just going to start Zosyn and follow. Check a QuantiFERON. We will also check a procalcitonin level. 4. Chronic obstructive pulmonary disease. Continue breathing treatments and follow. 5. History of chronic myeloid leukemia, status post transplant. 6. Disposition. Awaiting resolution of her hypotension, which is progressing. She is on a little bit of stress dose steroids. We may need to wean those after further evaluation. We will continue to follow and monitor closely. cc: Kenny Stern MD [facility]
[2018-11-29] MEDS: ZOSYN 4.5 GM in NS 100 ML IV SCH ×2 (13:00→21:18)
--- NOTE | 2018-11-29 18:57 | CONSULTATION ---
DATE OF CONSULTATION: 11/29/2018 REQUESTING PROVIDER: Kenny Stern MD REASON FOR CONSULTATION: Pulmonary emboli, hypotension, tPA evaluation. HISTORY OF PRESENT ILLNESS: This is a 33-year-old female with a medical history of COPD with ongoing tobacco abuse, left lower extremity DVT, and chronic myeloid leukemia. She presented to the [facility] on 11/24/2018 with left knee pain for 6 days and worsening SOB for 3 days. Initial workup in the ER revealed deep venous thrombosis and pulmonary emboli. She has been admitted to the [facility] ICU for further evaluation and management. On 11/25/2018, she developed hypotension, which is persistent despite the ongoing treatment. She was transferred to our facility yesterday for pulmonary consultation. At the time of my examination, patient is resting in bed comfortably with no acute distress noted. She reports she is going through a divorce. She has been very depressed and lying down for over 2 months. She realized a muscle-strain type of pain under the left knee 6 days before this hospital visit, but she did not seek any medical care. Later, she developed severe dyspnea on exertion for 3 days. She reports no fever, chills, chest pain or palpitation. PAST MEDICAL AND SURGICAL HISTORY: 1. COPD. 2. Ongoing tobacco abuse. 3. Left lower extremity DVT. 4. Chronic myeloid leukemia status post chemotherapy and stem cell transplant followed by Dr. Wong at [facility]. 5. section. SOCIAL HISTORY: The patient is going through a divorce. She currently lives alone. She smokes a pack per day. She has no history of alcohol or illicit drug use. FAMILY HISTORY: Reviewed and noncontributory. ALLERGIES: Latex as shown in the E chart, but the patient denies it. REVIEW OF SYSTEMS: A 10-point review of systems was conducted, and the pertinent is listed within the HPI, otherwise noncontributory. PHYSICAL EXAMINATION: Vital Signs: Temperature 97.9, blood pressure 123/77, pulse 104, respiratory rate 18, oxygen saturation 99% on nasal cannula at 2 L. General: Lying in bed comfortably with no acute distress. Does become tearful during my assessment. HEENT: Atraumatic midline. Mucosa pink and moist. Respiratory: Even and unlabored. Symmetrical excursion. Auscultation reveals diminished breathing sounds bibasilarly. Otherwise clear. Cardiovascular: Regular rate and rhythm. Gastrointestinal: Bowel sounds normoactive in all 4 quadrants. Soft, nontender, nondistended. Extremities: No pedal edema. No cyanosis. No clubbing. Dorsalis pedis 2+ bilaterally. Neurologic: Alert and oriented x3. Speech fluent. Follows commands. LABORATORY DATA: White blood cell 12.32, hemoglobin 9.8, hematocrit 29.6, platelets 242,000. Sodium 143, potassium 4.1, chloride 106, carbon dioxide 25, BUN 6, creatinine 0.6, glucose 126, PTT 71.7. IMAGING DATA: CT PA on 11/28/2018 revealed no change in the pulmonary emboli described in the recent event, interval development of an 11 mm cavity laterally and inferiorly in the right upper lobe, small amount of addressing infiltrates. No other interval change. No cardiomegaly. No pleural effusions. ASSESSMENT: This is a 53-year-old female with a medical history of chronic obstructive pulmonary disease with ongoing tobacco abuse, left lower extremity deep venous thrombosis, and chronic myeloid leukemia. She has been initially admitted to the [facility] with deep venous thrombosis and pulmonary emboli. She was transferred to our facility yesterday for pulmonary consultation. 1. Acute hypoxic respiratory failure. 2. Bilateral pulmonary emboli. 3. Right upper lobe cavity with a small amount of adjacent infiltrate. 4. Left lower extremity deep venous thrombosis. 5. Chronic obstructive pulmonary disease with ongoing tobacco abuse. 6. Persistent hypotension. The presence of structural heart disease has been ruled out by echocardiogram. 7. Questionable mural thrombus versus dissection. PLAN: 1. Continue supplemental oxygen. 2. Continue heparin drip, steroid and bronchodilators. 3. Follow up with CBC, BMP, PTT, QuantiFERON and procalcitonin. 4. Highly recommend patient to quit smoking. 5. Continue GI and DVT prophylaxis. 6. Further recommendation pending hospital course. Thank you for the courtesy of this consult. Dictated by BETHANY Cruz for Darren Minor MD cc: BETHANY Cruz MD [facility]
[2018-11-29] MEDS: HEPARIN 25,000 UNITS/D5W 25,000 UNIT/250 ML IV.SOLN IV SCH (21:18)
[2018-11-30] MEDS: SOLU-CORTEF IV SCH ×3 (00:28→22:30)
[2018-11-30] MEDS: ZOSYN 4.5 GM in NS 100 ML IV SCH ×3 (04:00→20:27)
[2018-11-30] MEDS: ULTRAM PO PRN ×3 (04:12→20:37)
[2018-11-30 04:37] LABS: BASO# 0.02 X1000 (0.0-0.2); BASO% 0.2 % (0.0-0.8); EOS# 0.02 X1000 (0.0-0.7); EOS% 0.2 % (0.0-10.0); HEMATOCRIT 26.5 % (37.0-47.0); HEMOGLOBIN 8.6 g/dL (12.0-16.0); IMM GRAN# 0.05 X1000 (0.0-0.04); IMM GRAN% 0.4 % (0.0-0.5); LYMPH# 1.04 X1000 (1.2-3.4); LYMPH% 8.1 % (20.5-51.1); MCH 32.1 PG (27-31); MCHC 32.5 g/dL (33-37); MCV 98.9 FL (81-99); MONO# 0.74 X1000 (0.11-0.59); MONO% 5.8 % (1.7-9.3); MPV 11.3 FL (7.4-10.4); NEUT# 10.94 X1000 (1.4-6.5); NEUT% 85.3 % (42.2-75.2); PLT 267 X1000 (130-400); RBC 2.68 XMIL (4.2-5.4); RDW 14.2 % (11.5-14.5); WBC 12.81 X1000 (4.8-10.8)
[2018-11-30 05:02] LABS: AGAP 11; BUN 9 mg/dL (8-22); CHLORIDE 105 mmol/L (98-107); COSMO 282; CREATININE 0.6 mg/dL (0.5-0.9); ESTIMATED GFR > 60; GLUCOSE 165 mg/dL (70-104); POTASSIUM 3.7 mmol/L (3.5-5.1); SODIUM 140 mmol/L (136-145); TCO2 24 mmol/L (25-35)
[2018-11-30 05:10] LABS: BANDS 8 % (0-1); HYPOCHROM 1+; LYMPHS 2 % (21-51); MONO 2 % (1-9); SEGS 88 % (42-75)
[2018-11-30 05:11] LABS: LARGE PLATELETS 2+
[2018-11-30] MEDS: PRILOSEC PO SCH (06:16)
[2018-11-30] MEDS: NS 1,000 ML IV SCH ×2 (06:16→20:28)
[2018-11-30] MEDS: XANAX PO PRN ×3 (06:26→22:30)
[2018-11-30] MEDS: XOPENEX NEB INH PRN ×3 (07:25→23:06)
[2018-11-30] MEDS: SYMBICORT 160/4.5 MICROGM INHALER INH SCH ×2 (07:25→19:04)
[2018-11-30] MEDS: LACTULOSE PO SCH ×2 (08:20→20:27)
[2018-11-30] MEDS: MIRALAX PO SCH (08:23)
[2018-11-30] MEDS: SINGULAIR PO SCH (08:37)
[2018-11-30] MEDS: NICODERM PATCH TD SCH (08:37)
--- NOTE | 2018-11-30 12:02 | PROGRESS NOTE ---
DATE: 11/30/2018 SUBJECTIVE: This morning Ms. Deng refers to be feeling a little better. Denies any complaints. OBJECTIVE: Vital Signs: Blood pressure 117/73, pulse of 72, respirations 19, and temperature is 98.5. General: Ms. Deng is a 53-year-old female. She is in bed in no distress. Mucosa is pink and moist. Anicteric. Acyanotic. Neck: Supple. Chest: Good air entry bilaterally. There was no crepitations. No rhonchi. Cardiovascular: Regular rate and rhythm. Abdomen: Soft and nontender. Extremities: No pedal edema. LAYOUT DESIGNER: Patient is awake, alert, and oriented. There are no focal neurological deficits. LABORATORY DATA: 1. Data has been reviewed. WBC is 12.81, hemoglobin is 8.6, and platelet count of 267,000. Chemistry is also reviewed, and is completely normal. So far, blood cultures have been done twice, and it is all negative. 2. A CTA of the lungs which was done on the did show the development of a small cavity in the right upper lobe with a small amount of adjacent infiltrates. No interval change. ASSESSMENT: 1. Acute hypoxemic respiratory failure on presentation improved. 2. Acute bilateral symptomatic pulmonary embolism. The patient is currently on IV heparin drip. We will transition this to p.o. Eliquis. 3. Extensive left lower extremity DVT. We will continue with the anticoagulation. This is about the second time Ms. Deng has developed a DVT. She also has an underlying CML so I would think that she will need to be on lifelong anti anticoagulation. 4. Right upper lobe cavitary pneumonia. The patient is on IV antibiotics. 5. History of chronic obstructive pulmonary disease currently not in any exacerbation. 6. CML, status post stem cell transplant. 7. Persistent hypotension presumably due to underlying PE. This has improved. PLAN: In general Ms. Deng seems to be doing a lot better. Blood pressure has normalized. We are going to start the patient on Eliquis 10 mg b.i.d. for 10 days, and then drop it down to 5 mg b.i.d. I would think that Ms. Deng will need to be on anticoagulation for the rest of her life. She normally follows up with Dr. Wong in the [facility] so we would advise her to continue following up with the [facility] Oncology team. Today, once the Eliquis is started, we will turn off the drip. Monitor Ms. Deng in the ICU for a couple of hours and then transfer her to the regular medical floor. cc: Shawn Rogers MD
[2018-11-30] MEDS: ELIQUIS PO SCH ×2 (12:08→20:27)
[2018-11-30] MEDS: LEXAPRO PO SCH (20:27)
[2018-12-01] MEDS: ZOSYN 4.5 GM in NS 100 ML IV SCH ×3 (03:29→20:26)
[2018-12-01] MEDS: PRILOSEC PO SCH (06:12)
[2018-12-01] MEDS: NS 1,000 ML IV SCH (07:15)
[2018-12-01] MEDS: SYMBICORT 160/4.5 MICROGM INHALER INH SCH ×2 (08:09→19:19)
[2018-12-01] MEDS: XOPENEX NEB INH PRN ×2 (08:09→19:19)
[2018-12-01] MEDS: SINGULAIR PO SCH (08:38)
[2018-12-01] MEDS: NICODERM PATCH TD SCH (08:38)
[2018-12-01] MEDS: ELIQUIS PO SCH ×2 (08:38→20:27)
[2018-12-01] MEDS: MIRALAX PO SCH (08:40)
[2018-12-01] MEDS: LACTULOSE PO SCH (08:40)
[2018-12-01] MEDS: SOLU-CORTEF IV SCH (10:38)
[2018-12-01] MEDS: NORCO-7.5 PO PRN ×2 (13:31→20:27)
--- NOTE | 2018-12-01 14:53 | PROGRESS NOTE ---
DATE: 12/01/2018 SUBJECTIVE: This morning, Ms. Deng refers to be doing fairly okay. She denies any chest pain. She did have some concerns that she lives alone and that she wants to be fairly strong before she goes home. She did complain of some mild discomfort in the left leg. OBJECTIVE: Vital signs: Blood pressure 127/87, pulse of 71, respiration is 14, temperature 98.5 degrees. Patient was saturating about 95% on room air. General: Ms. Deng is a 53-year-old female. She was in bed in, in no distress. HEENT: Mucosa is pink and moist. Anicteric. Acyanotic. Neck: Supple. Chest: Good air entry bilateral. There were no crepitations, no rhonchi. No accessory muscle use. Cardiovascular: Regular rate and rhythm. No murmurs, no rubs, no gallops. Gastrointestinal: Abdomen was soft, nontender. Bowel sounds were present. Extremities: No pedal edema. Distal pulses were present. LABORATORY DATA: There is no new lab work today. Patient's TSH was 3.89 which is normal. Her vitals have been consistently normal throughout the throughout the last 24 hours. IMAGING: No recent imaging studies. CURRENT MEDICATIONS: Have all been reviewed. ASSESSMENT: 1. Acute hypoxemic respiratory failure on presentation secondary to pulmonary embolism, improving. 2. Acute bilateral symptomatic pulmonary embolism associated with hypotension. The patient was initially started on heparin drip. She has been transitioned to oral Eliquis. 3. Extensive left lower extremity deep vein thrombosis. We will continue with Eliquis anticoagulation. This is about the 2nd time Ms Deng has deep venous thrombosis. She does have an underlying chronic myeloid leukemia, so I think she will need to be on the lifelong anticoagulation. 4. Right upper lobe cavitary pneumonia. Patient is on antibiotics. 5. Hypotension, resolved. 6. Chronic myeloid leukemia status post stem cell transplant, noted. 7. Left lower extremity pain, most likely associated with a deep venous thrombosis. We will continue addressing the underlying physiology. 8. Iron deficiency anemia. The patient will be replaced with iron therapy as soon as the infection is under control. PLAN: Today Ms. Deng is doing fair. We are going to discontinue the IV fluids. We will encourage her to sit up in a chair. She is okay to move around very cautiously. We will continue with the p.o. Eliquis and Ms Deng will be transferred from the ICU to the regular medical floor. I anticipate that in the next 24 to 48 hours, we might be able to discharge Ms. Deng. cc: Shawn Rogers MD
[2018-12-01] MEDS: XANAX PO PRN ×2 (15:45→23:29)
[2018-12-01] MEDS: LEXAPRO PO SCH (20:27)
[2018-12-02] MEDS: ZOSYN 4.5 GM in NS 100 ML IV SCH ×3 (03:57→20:03)
[2018-12-02] MEDS: PRILOSEC PO SCH (06:10)
[2018-12-02] MEDS: NORCO-7.5 PO PRN (06:13)
[2018-12-02 06:32] LABS: BASO# 0.06 X1000 (0.0-0.2); BASO% 0.5 % (0.0-0.8); EOS# 0.45 X1000 (0.0-0.7); EOS% 3.8 % (0.0-10.0); HEMATOCRIT 25.5 % (37.0-47.0); HEMOGLOBIN 8.4 g/dL (12.0-16.0); IMM GRAN# 0.11 X1000 (0.0-0.04); IMM GRAN% 0.9 % (0.0-0.5); LYMPH# 3.06 X1000 (1.2-3.4); LYMPH% 26.1 % (20.5-51.1); MCH 32.4 PG (27-31); MCHC 32.9 g/dL (33-37); MCV 98.5 FL (81-99); MONO% 12.8 % (1.7-9.3); MPV 11.5 FL (7.4-10.4); NEUT# 6.56 X1000 (1.4-6.5); NEUT% 55.9 % (42.2-75.2); PLT 288 X1000 (130-400); RBC 2.59 XMIL (4.2-5.4); RDW 14.9 % (11.5-14.5); WBC 11.74 X1000 (4.8-10.8)
[2018-12-02 07:01] LABS: AGAP 14; ALB/GLOB RATIO 1.2; ALBUMIN 3.1 g/dL (3.5-5.0); ALKALINE PHOSPHATASE 98 U/L (32-104); BUN 12 mg/dL (8-22); CALCIUM 8.4 mg/dL (8.8-10.2); CHLORIDE 108 mmol/L (98-107); COSMO 287; CREATININE 0.8 mg/dL (0.5-0.9); ESTIMATED GFR > 60; GLUCOSE 80 mg/dL (70-104); GOT 80 U/L (10-30); GPT 90 U/L (10-36); POTASSIUM 2.9 mmol/L (3.5-5.1); SODIUM 145 mmol/L (136-145); TCO2 23 mmol/L (25-35); TOTAL BILIRUBIN 0.26 mg/dL (0.20-1.00); TOTAL PROTEIN 5.7 g/dL (6.3-8.3)
[2018-12-02 07:38] LABS: LYMPHS 32 % (21-51); MONO 10 % (1-9); SEGS 58 % (42-75)
[2018-12-02] MEDS: NICODERM PATCH TD SCH (08:00)
[2018-12-02] MEDS: SINGULAIR PO SCH (08:00)
[2018-12-02] MEDS: ELIQUIS PO SCH ×2 (08:00→20:03)
[2018-12-02] MEDS: MIRALAX PO SCH (08:01)
[2018-12-02] MEDS ORDERED: KLOR-CON PO ONE (10:08)
--- NOTE | 2018-12-02 10:48 | Diag Imaging Result Doc PS360 ---
US GB < RUQ (LIMITED) - 12/02/2018 INDICATION: elevated liver enzymes TECHNIQUE: COMPARISON: CT 11/27/2018 FINDINGS: There are several large shadowing stones in the gallbladder measuring around 2 cm. No gallbladder distention or inflammation. About one half of the gallbladder lumen is filled with stones. The liver, pancreas, and right kidney are normal. Common bile duct measures 4.5 mm. Aorta, IVC, and main portal vein are patent. IMPRESSION: Large gallstones in the gallbladder. Electronically signed by Barry Arndt 12/02/2018 10:46 AM
[2018-12-02] MEDS: XANAX PO PRN ×2 (10:50→20:03)
--- NOTE | 2018-12-02 11:07 | PROGRESS NOTE ---
DATE: 12/02/2018 SUBJECTIVE: Today, Ms. Sowmya Carmichael refers to be doing a lot better. She thinks she is feeling stronger. There is less pain in her legs. OBJECTIVE: Vital Signs: Blood pressure is 120/74, pulse of 75, respirations are 20, temperature is 98.5 degrees, the patient is saturating 96% on room air. General Examination: Ms. Sowmya Carmichael is a 53-year-old, female. She is in bed. No distress. HEENT: Mucosa is pink and moist. Anicteric. Acyanotic. Neck: Supple. No JVD. Chest: Good air entry bilaterally. No crepitations. No rhonchi. Cardiovascular: Regular rate and rhythm. No murmurs, no rubs, no gallops. GI: Abdomen is soft, nontender. Bowel sounds present. Extremities: No pedal edema. HOSPITAL WELLNESS COORDINATOR: The patient is awake, alert, oriented. There is no focal neurological deficit. Laboratory Data: WBC is 11.74, hemoglobin is 8.4, platelet count of 288,000. Chemistry is reviewed. Potassium is 2.9. No recent imaging studies. Medications: Have all been reviewed. The patient is on Zosyn. Today is day 3. ASSESSMENT: 1. Acute hypoxemic respiratory failure on presentation associated with hypotension, all secondary to bilateral pulmonary embolism. The patient has significantly improved. She is on therapeutic anticoagulation. 2. Acute bilateral pulmonary embolism associated with hypotension. Patient was initially started on a heparin drip. She is currently on Eliquis. 3. Extensive left lower extremity deep vein thrombosis. 4. Right upper lobe cavitary pneumonia. The patient is on Zosyn. Today is day 3. 5. Hypotension, resolved. 6. History of chronic myeloid leukemia, status post stem cell transplant. The patient follows up with the oncology team in [facility]. 7. Left lower extremity pain, improved. 8. Iron deficiency anemia, noted. 9. Transaminitis, presumably drug-induced. The patient got couple doses of acetaminophen yesterday. We are going to withhold that. We are going to stop it. We are going to also do an ultrasound of the right upper quadrant and do hepatitis screening to rule out other possibilities. The patient has been notified. PLAN: In general, I think Ms. Sowmya Carmichael is doing fairly okay. We are waiting for a transfer to the medical floor. She is getting some physical therapy. Would encourage her to participate more and we will do the studies related to the liver today. I think Ms. Sowmya Carmichael is a potential discharge tomorrow. cc: Shawn Rogers MD
[2018-12-02] MEDS: ULTRAM PO PRN (13:39)
[2018-12-02] MEDS: SYMBICORT 160/4.5 MICROGM INHALER INH SCH (19:10)
[2018-12-02] MEDS: MAG-OX PO SCH (20:03)
[2018-12-02] MEDS: LEXAPRO PO SCH (20:03)
[2018-12-03] MEDS: ZOSYN 4.5 GM in NS 100 ML IV SCH ×3 (04:16→22:20)
[2018-12-03] MEDS: PRILOSEC PO SCH (06:08)
[2018-12-03 06:46] LABS: MAGNESIUM 1.5 mg/dL (1.5-2.7); POTASSIUM 3.6 mmol/L (3.5-5.1)
[2018-12-03] MEDS: SYMBICORT 160/4.5 MICROGM INHALER INH SCH ×3 (08:45→19:35)
[2018-12-03] MEDS: XANAX PO PRN ×2 (10:28→17:48)
[2018-12-03] MEDS: ULTRAM PO PRN ×2 (10:28→17:48)
[2018-12-03] MEDS: SINGULAIR PO SCH (10:29)
[2018-12-03] MEDS: ELIQUIS PO SCH ×2 (10:29→22:21)
[2018-12-03] MEDS: MAG-OX PO SCH ×3 (10:30→17:47)
[2018-12-03] MEDS: MIRALAX PO SCH (10:30)
[2018-12-03] MEDS: NICODERM PATCH TD SCH (16:42)
--- NOTE | 2018-12-03 18:49 | PROGRESS NOTE ---
DATE: 12/03/2018 SUBJECTIVE: This morning Ms. Deng refers to be doing a lot better. She said she has been participating more with physical therapy, and she is getting her strength back. OBJECTIVE: Vital signs: Blood pressure 115/64, pulse of 103, respirations 23, and temperature is 98.2 degrees. Patient is saturating 97% on room air. General: Ms. Deng is a 53-year-old female. She is in bed in no distress. Mucosa is pink and moist. Anicteric. Acyanotic. Neck: Supple. Chest: Good air entry bilaterally. There were no crepitations. No rhonchi. Cardiovascular: Regular rate and rhythm. Abdomen: Soft, nontender. Extremities: No pedal edema. 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 No focal neurological deficit. LABORATORY DATA: Today, potassium was 3.6. ASSESSMENT: 1. Acute hypoxemic respiratory failure on presentation associated with hypotension, all secondary to bilateral pulmonary embolism. Patient is clinically improved. 2. Acute bilateral PE associated with hypotension. Patient was initially on heparin drip, and has been started on Eliquis. Today is day 3. She seems to be tolerating this very well. 3. Extensive left lower extremity deep vein thrombosis. We will continue with Eliquis anticoagulation. 4. Right upper lobe cavitary pneumonia. The patient is on IV Zosyn, today is day 4. 5. Hypotension resolved. 6. History of CML. The patient is status post stem cell transplant. She follows up with Dr. Worthy in [facility]. 7. Iron deficiency anemia. This will be replaced with iron supplement. 8. Large gallstones in the gallbladder, but no evidence of distention or inflammation around the gallbladder. The patient is currently asymptomatic so she has been advised to follow up with surgery and plan an outpatient gallbladder removal at a later date. cc: MD ESTELA Cordoba
--- NOTE | 2018-12-03 21:55 | PULMONOLOGY PROGRESS NOTE ---
DATE: 12/03/2018 SUBJECTIVE: The patient is awake, alert, and conversant. She reports she is feeling better. She is tolerating some p.o. intake. OBJECTIVE: Vital Signs: Maximum temperature in the last 24 hours 99.8 degrees. BP 106/60, heart rate 106, respiratory rate 22, oxygen saturation 92% on room air. HEENT: Pupils are equal and reactive. Oropharynx appears clear. Neck: Supple. Chest: Reveals good air entry bilaterally without wheezing, rales or tactile fremitus. Cardiac: S1, S2. Abdomen: Soft. Extremities: Without edema. LABORATORIES: No new chemistries, CBC or chest x-ray today. IMPRESSION: 53-year-old with: 1. Bilateral pulmonary emboli. 2. Acute hypoxemic respiratory failure. 3. Cavitary pneumonia. 4. Chronic myeloid leukemia, status post stem cell transplant. DISCUSSION: This is a 53-year-old with the problems outlined above. This is hospital day 9. She continues to improve. RECOMMENDATIONS: 1. Continue current anticoagulation regimen. 2. Oxygen as needed to maintain saturation greater than 90%. 3. Continue antibiotics. 4. Anticipate discharge soon. cc: Francis Ledbetter MD
[2018-12-03] MEDS: LEXAPRO PO SCH (22:22)
[2018-12-04] MEDS: XANAX PO PRN ×2 (00:03→09:10)
[2018-12-04] MEDS: ULTRAM PO PRN ×2 (00:03→07:39)
[2018-12-04] MEDS: ZOSYN 4.5 GM in NS 100 ML IV SCH (04:48)
[2018-12-04] MEDS: PRILOSEC PO SCH (07:03)
[2018-12-04] MEDS: SYMBICORT 160/4.5 MICROGM INHALER INH SCH (08:04)
[2018-12-04] MEDS: ELIQUIS PO SCH (09:02)
[2018-12-04] MEDS: NICODERM PATCH TD SCH (09:02)
[2018-12-04] MEDS: SINGULAIR PO SCH (09:03)
[2018-12-04] MEDS: MIRALAX PO SCH (09:03)
[2018-12-04 11:32] VITALS: BP 102/69
[2018-12-04 11:40] LABS: HEPATITIS PROFILE ACUTE SEE COMMENTS
--- NOTE | 2018-12-05 00:13 | DISCHARGE SUMMARY ---
ADMISSION DATE: 11/24/2018 DISCHARGE DATE: 12/04/2018 ADMISSION DIAGNOSES: 1. Bilateral pulmonary embolism. 2. Left lower extremity deep vein thrombosis. 3. Leukocytosis. 4. Tobacco abuse. DIAGNOSES AT TIME OF DISCHARGE: 1. Acute hypoxemic respiratory failure on presentation secondary to bilateral pulmonary embolism. 2. Bilateral pulmonary embolism associated with hypotension. 3. Extensive left lower extremity deep vein thrombosis. 4. Right upper lobe cavitary pneumonia. 5. 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 Patient follows up with Dr. Worthy. 6. Iron-deficiency anemia. 7. Large cholelithiasis without cholecystitis. 8. Chronic obstructive pulmonary disease exacerbation/emphysema on CT scan. 9. Prominent abdominal vessel atherosclerosis noted. DISPOSITION: Home. FOLLOW-UP: Will be Marvin in [facility]. CONSULTATION DURING THIS ADMISSION: 1. Pulmonary Medicine was consulted, patient was seen by Dr. Minor. 2. Surgery was consulted, patient was seen by Dr. Cheema. INVASIVE PROCEDURES: None. IMAGING STUDIES OF SIGNIFICANCE: 1. Lower extremity Doppler ultrasound did reveal extensive left lower extremity DVT. 2. CTA of the lung did show bilateral pulmonary emboli, possible lower thoracic artery dissection, which was not present on the prior studies. There was a left lower lobe pulmonary nodule. There is emphysema and cholelithiasis. 3. Echocardiogram did show ejection fraction of 60%, no wall motion abnormality. 4. CT scan of the abdomen and pelvis did show cholelithiasis, constipation, prominent atherosclerosis, left lower extremity deep vein thrombosis. No hematoma. 5. Repeat CTA did show interval development of small cavitary in the left upper lobe. 6. Ultrasound of the abdomen did show large stones in the gallbladder. DISCHARGE MEDICATIONS: 1. Symbicort. 2. Montelukast 10 mg daily. 3. Apixaban 10 mg b.i.d. for 7 days, and then 5 mg b.i.d. 4. Augmentin 875 b.i.d. PRESENTING COMPLAINT: Pain in the left knee and having difficulty breathing for 3 days. HISTORY OF PRESENTING COMPLAINT: Ms Deng is a 53-year-old female who presented to the emergency department in [place] because of shortness of breath and left lower extremity swelling. The patient was evaluated and was found to have a DVT of the left leg and bilateral PE. She was transferred to [facility] because of the concern of thoracic aneurysm rupturing. HOSPITAL COURSE: Ms. Deng was admitted to the ICU, was seen by both Pulmonary Medicine and Surgery. A decision was made to continue with IV anticoagulation, patient was on heparin, which she did pretty well. We did transition her to therapeutic Eliquis and she tolerated it well. It was also picked up that she had developed some cavitary pneumonia, so she was started on IV antibiotics. Ms Deng improved significantly well during the hospital course. She was able to tolerate physical therapy. The patient was seen on daily basis by Pulmonary Medicine as well. She normally follows up with Dr. Worthy at [facility] for her CML, so we advise that she follows up as well with them on the anticoagulation management. Ms. Deng was also found to have cholelithiasis, which was not causing any acute cholecystitis. Her liver enzymes were minimally elevated but her hepatitis panel was negative. She has been advised to follow up with the surgeon for the outpatient cholecystectomy evaluation at a later date, since she is currently on anticoagulation and relatively unstable, we advised that she postpone any nonemergent surgical procedure. Today, Ms. Deng refers to be feeling a whole lot better. Her vitals are stable, blood pressure is 102/69, pulse of 83, respirations 17, temperature 98.1 degrees. Physical exam is unremarkable. She is saturating 97% on room air. We think Ms. Deng is fairly stable for discharge. All the discharge instructions have been discussed with her and she voiced understanding. TIME SPENT: For discharge is 38 minutes. cc: MD Darren Cordoba MD
== END 2018-12-04 12:36 | disposition home or self-care (01) | DRG 175 ==
LOC: P.ED 07:34 → P.ICU 12:37 → SUATTDRO 12:37 → ICU 11-28 20:52 → 4N 12-02 16:02
PROVIDERS: ATTEND Internal Medicine
CPT/HCPCS: 71275; 74177; 76705; 80048; 80053; 80074; 81001; 81240; 81241; 82270; 82533; 82607; 82728; 82746; 83090; 83540; 83550; 83605; 83735; 84132; 84443; 85025; 85300; 85301; 85302; 85306; 85612; 85613; 85730; 86147; 86480; 87040; 87088; 93005; 93306; 93308; 93971; 94640; 94761; 94799; 97110; 97162; 97530; 99285; A9270; J1265; J1644; J1650; J1720; J2405; J2543; J2916; J7030; J7040; Q9967